=== PATIENT | female | born 1935 | race Caucasian/White ===

== ENCOUNTER 2016-12-19 07:34 | Day surgery (SDC) | payer OTHER, BC ==
[~2016-12-19] VITALS: Ht 160 cm; Wt 98.0 kg
[~2016-12-19 07:34] MED LIST: AZITHROMYCIN250 MG1 PO; CALCIUM 600+D31 EACH PO; COLACE100 MG PO; COZAAR100 MG PO; ERGOCALCIF50000 UNIT PO; FUROSEMIDE80 MG PO; HYDROCODON-ACE1 EAC9 PO; HYTRIN2 MG PO; HYTRIN5 MG PO; LEVOFLOXACIN500 MG PO; NORVASC5 MG PO; PREDNISONE20 MG PO; PRILOSEC OTC20 MG PO; RENAL CAPS SOFTG1 MG PO; RENVELA800 MG PO; ROBITUSSIN AC,T10 ML PO; TAMIFLU6 MG/1 ML PO; TOPROL XL200 MG PO; ZYLOPRIM100 MG PO
[2016-12-19] MEDS ORDERED: NEXIUM20 MG PO (08:06)
[2016-12-19 10:20] LABS: METH RESISTANT S AUREUS PCR NEGATIVE (NEGATIVE); PROBE CHECK PASS; SPECIMEN PROCESSING CONTROL PASS
== END 2016-12-19 10:09 | disposition home or self-care (01) ==
LOC: CATH 07:34
PROVIDERS: Surgery
DX: T82.858A Stenosis of other vascular prosthetic devices, implants and grafts, initial encounter (principal); I12.0 Hypertensive chronic kidney disease with stage 5 chronic kidney disease or end stage renal disease; N18.6 End stage renal disease; Z99.2 Dependence on renal dialysis; Z88.2 Allergy status to sulfonamides
CPT/HCPCS: 87641; C1725; C1769; C1894; J1644; J2250; J3010; S0020

== ENCOUNTER 2017-08-21 07:40 | Day surgery (SDC) | payer OTHER, BC ==
[~2017-08-21] VITALS: Ht 160 cm; Wt 102.0 kg
[~2017-08-21 07:40] MED LIST changes: +NEXIUM20 MG PO; +SERTRALINE HCL25 MG PO
== END 2017-08-21 10:40 | disposition home or self-care (01) ==
LOC: CATH 07:40
DX: T82.858A Stenosis of other vascular prosthetic devices, implants and grafts, initial encounter (principal); I12.0 Hypertensive chronic kidney disease with stage 5 chronic kidney disease or end stage renal disease; N18.6 End stage renal disease; Z99.2 Dependence on renal dialysis; Z88.2 Allergy status to sulfonamides; Z88.8 Allergy status to other drugs, medicaments and biological substances; Y83.2 Surgical operation with anastomosis, bypass or graft as the cause of abnormal reaction of the patient, or of later complication, without mention of misadventure at the time of the procedure
CPT/HCPCS: 87641; C1725; C1769; C1894; J1644; J2250; J3010

== ENCOUNTER 2017-11-27 06:48 | Day surgery (SDC) | payer OTHER, BC ==
[~2017-11-27] VITALS: Ht 160 cm; Wt 102.5 kg
== END 2017-11-27 09:25 | disposition home or self-care (01) ==
LOC: CATH 06:48
PROC: B51W1ZZ Fluoroscopy of Dialysis Shunt/Fistula using Low Osmolar Contrast (ICD-10-PCS; principal; 2017-11-27)
PROC: 057Y3DZ Dilation of Upper Vein with Intraluminal Device, Percutaneous Approach (ICD-10-PCS; principal; 2017-11-27)
PROC: 05HY33Z Insertion of Infusion Device into Upper Vein, Percutaneous Approach (ICD-10-PCS; principal; 2017-11-27)
PROC: 3E03317 Introduction of Other Thrombolytic into Peripheral Vein, Percutaneous Approach (ICD-10-PCS; principal; 2017-11-27)
DX: T82.858A Stenosis of other vascular prosthetic devices, implants and grafts, initial encounter (principal); Y83.2 Surgical operation with anastomosis, bypass or graft as the cause of abnormal reaction of the patient, or of later complication, without mention of misadventure at the time of the procedure; I12.0 Hypertensive chronic kidney disease with stage 5 chronic kidney disease or end stage renal disease; N18.6 End stage renal disease; Z99.2 Dependence on renal dialysis; Z87.891 Personal history of nicotine dependence
CPT/HCPCS: 87641; C1725; C1769; C1874; C1894; J1200; J1644; J2250

== ENCOUNTER 2018-02-28 06:45 | Day surgery (SDC) | payer OTHER, BC ==
[~2018-02-28] VITALS: Ht 160 cm; Wt 95.2 kg
== END 2018-02-28 09:15 | disposition home or self-care (01) ==
LOC: CATH 06:45
PROC: 3E03317 Introduction of Other Thrombolytic into Peripheral Vein, Percutaneous Approach (ICD-10-PCS; principal; 2018-02-28)
PROC: B51W1ZZ Fluoroscopy of Dialysis Shunt/Fistula using Low Osmolar Contrast (ICD-10-PCS; principal; 2018-02-28)
PROC: 05HY33Z Insertion of Infusion Device into Upper Vein, Percutaneous Approach (ICD-10-PCS; principal; 2018-02-28)
PROC: 057Y3ZZ Dilation of Upper Vein, Percutaneous Approach (ICD-10-PCS; principal; 2018-02-28)
DX: T82.858A Stenosis of other vascular prosthetic devices, implants and grafts, initial encounter (principal); Y83.2 Surgical operation with anastomosis, bypass or graft as the cause of abnormal reaction of the patient, or of later complication, without mention of misadventure at the time of the procedure; I12.0 Hypertensive chronic kidney disease with stage 5 chronic kidney disease or end stage renal disease; N18.6 End stage renal disease; Z99.2 Dependence on renal dialysis; Z87.891 Personal history of nicotine dependence
CPT/HCPCS: 87641; C1725; C1769; C1894; J0360; J1644; J2250; J3010